=== PATIENT | male | born 1950 | race Caucasian/White ===

== ENCOUNTER 2025-07-05 11:23 | Outpatient (REF) | payer MEDICARE, OTHER, SELFPAY ==
[2025-07-05 14:43] LABS: Alanine Aminotransferase 24 U/L (0-40); Albumin Level 4.6 g/dL (3.5-5.0); Alkaline Phosphatase 104 U/L (39-117); Anion Gap 11 (12-20); Aspartate Amino Transferase 31 U/L (5-37); Blood Urea Nitrogen 17 mg/dL (9-16); Calcium 9.9 mg/dL (8.4-10.2); Carbon Dioxide 30 mmol/L (22-29); Chloride 108 mmol/L (96-108); Estimated Glomerular Filt Rate > 60; Potassium 4.0 mmol/L (3.3-5.1); Sodium 145 mmol/L (135-145); Total Protein 7.0 g/dL (6.5-8.0)
[2025-07-05 14:45] LABS: Thyroid Stimulating Hormone 1.01 uIU/mL (0.32-4.0)
[2025-07-05 15:02] LABS: Folate 11.9 ng/mL (> or = 4.0); Vitamin B12 571 pg/mL (200-900)
[2025-07-06 06:39] LABS: Lyme Abs Screen <0.90 index
== END 2025-07-05 11:24 | disposition home or self-care (01) ==
LOC: HO.LAB 11:23
PROVIDERS: PCP Internal Medicine; Visit Provider Psychiatry & Neurology Neurology
DX: G30.9 Alzheimer's disease, unspecified (principal); F02.80 Dementia in other diseases classified elsewhere, unspecified severity, without behavioral disturbance, psychotic disturbance, mood disturbance, and anxiety; Z01.84 Encounter for antibody response examination
CPT/HCPCS: 36415; 80048; 80076; 82607; 82746; 84443; 85652; 86617; 86618; 99202

== ENCOUNTER 2025-07-05 11:23 | Outpatient (AMB) | payer MEDICARE, SELFPAY ==
--- NOTE | 2025-07-05 11:51 | MHC.OFFVIS ---
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 His situation slowly worsened and apparently in September of 2024 he had an amyloid PET scan done in [place]. She was here to find out if anything could be done about him. He was having problem with his memory and focusing but otherwise no significant behavioral problems. He had a trip planned already to go to [email or web address] with his in a week or so. [facility] Medical History (Updated 07/05/25 @ 12:13 by Malena Morataya MD) Prediabetes Benign essential tremor SHAHBAZ (obstructive sleep apnea) CKD (chronic kidney disease) Alzheimer disease Surgical History (Updated 07/04/25 @ 09:30 by Rosa Leslie [facility]) History of carpal tunnel surgery H/O cataract removal with insertion of prosthetic lens History of hip surgery H/O arthroscopy of shoulder Family History (Updated 07/04/25 @ 09:32 by Rosa Leslie CMA) Father No problems noted. Mother Hypertension Kidney failure Review of Systems Const Details: - Neurological: Reports cognitive decline, memory retention issues, slower mental processing, forgetfulness. Denies physical slowness. - Psychiatric: Reports anxiety, PTSD. Denies severe mood swings. - Sleep: Reports poor sleep quality despite CPAP use for sleep apnea. 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 He was educated about this concept and its conventional and current treatment. We talked about biological drugs and their potential benefit in side-effects including possibility of stroke both ischemic and bleeding type leading to disability or even . I also advised him to bring his next time with him so that at least somebody from his family fully understand implication of this type of treatment. He wanted to go ahead and I am making arrangement for that but he would require a fresh MRI, blood tests, and arrangement for infusion. Infusion would be started after he comes back from [place]. He was advised not to travel alone. Orders: Orders Vitamin B12 and Folate Today 80 - Dementia in other diseases classified elsewhere, unspecified severity, without behavioral disturbance, psychotic disturbance, mood disturbance, and anxiety, G30.9 - Alzheimer's disease, unspecified Basic Metabolic Panel Today F0.80 - Dementia in other diseases classified elsewhere, unspecified severity, without behavioral disturbance, psychotic disturbance, mood disturbance, and anxiety, G30.9 - Alzheimer's disease, unspecified Erythrocyte Sedimentation Rate Today 80 - Dementia in other diseases classified elsewhere, unspecified severity, without behavioral disturbance, psychotic disturbance, mood disturbance, and anxiety, G30.9 - Alzheimer's disease, unspecified MR head/brain wo con Today F080 - Dementia in other diseases classified elsewhere, unspecified severity, without behavioral disturbance, psychotic disturbance, mood disturbance, and anxiety, G30.9 - Alzheimer's disease, unspecified Thyroid Stimulating Hormone Today F0.80 - Dementia in other diseases classified elsewhere, unspecified severity, without behavioral disturbance, psychotic disturbance, mood disturbance, and anxiety, G30.9 - Alzheimer's disease, unspecified Liver Panel Today F0.80 - Dementia in other diseases classified elsewhere, unspecified severity, without behavioral disturbance, psychotic disturbance, mood disturbance, and anxiety, G30.9 - Alzheimer's disease, unspecified Lyme IgG/IgM w/reflex to WB Today F080 - Dementia in other diseases classified elsewhere, unspecified severity, without behavioral disturbance, psychotic disturbance, mood disturbance, and anxiety, G30.9 - Alzheimer's disease, unspecified Referrals Infusion Center Notification F0.80 - Dementia in other diseases classified elsewhere, unspecified severity, without behavioral disturbance, psychotic disturbance, mood disturbance, and anxiety, G30.9 - Alzheimer's disease, unspecified Medications: New donanemab-azbt (Kisunla) administer as dose 4 and thereafter 350 mg (20 mL) IV Q4W 1 month Coding Level of Care Code New Pt Level 5 (84934) Diagnoses Alzheimer disease G30.9; F02.80
--- OUTSIDE RECORDS SUMMARY | 2025-07-05 13:00 | XMS_ITS | Clinical Summary ---
Author Organization [facility] Address [address] [place] [address] Phone Care Team Providers Care Telephone Solicitor Name Role Phone Carlton Martinez MD Primary Care Provider [phone] Social History Tobacco Use Types Packs/Day Years Used Date Smoking Tobacco: Never Assessed Education Answer Date Recorded Are you interested in more education? Not on miles e 01/29/2023 Are you concerned about learning? Not on file 01/29/2023 No 01/29/2023 No 01/29/2023 Digital Access Answer Date Recorded No 03/02/2023 No 03/02/2023 No 03/02/2023 Reliable internet access at home? Not on file 03/02/2023 Device with a working camera? Not on file Sex and Gender Information Value Date Recorded Sex Assigned at Male 05/01/2022 5:59 PM EDT Legal Sex Male 7:29 PM EST Gender Identity Male 05/01/2022 5:59 PM EDT Sexual Orientation Straight 05/01/2022 5: 59 PM EDT Plan of Treatment Health Maintenance Due Date Last Done Comments LIPID PANEL 1950 DEPRESSION SCREENING 1963 SMOKING Hx and SMOKELESS TOBACCO SCREENING 01/11/1964 HEPATITIS C SCREENING 1969 COLOGUARD 01/11/1996 COLONOSCOPY 01/11/1996 COLORECTAL CANCER SCREENING 01/11/1996 FIT TEST 01/11/1996 FOBT 01/11/1996 SIGMOIDOSCOPY 01/11/1996 VIRTUAL COLONOSCOPY 01/11/1996 PNEUMOCOCCAL VACCINES (50+ years) (1 of 1 - PCV) 2001 ZOSTER VACCINES (1 of 2) 2001 INFLUENZA VACCINE (#1) 2025 , 07/20/2017 COVID-19 VACCINE (2 - 2024-2 6 season) 2025 08/05/2021 RSV VACCINE (1 - 1-dose 75+ series) 2026 Adult Td,Tdap Booster 09/03/2031 09/03/2021 HEPATITIS A VACCINES Aged Out No long er eligible based on patient's age to complete this topic HIB VACCINES Aged Out No longer eligi ble based on patient's age to complete this topic MENINGOCOCCAL VACCINES (ACWY) Aged Out No longer eligible based on patient's age to complete this topic MENINGOCOCCAL VACCINES (B) Aged Out N o longer eligible based on patient's age to complete this topic Medical Devices Not on file Insurance MEDICARE PART A & B MEDICARE PART A & B MEDICARE PART A & B MEDICARE PART A & B MEDICARE PART A & B MEDICARE PART A & B MEDICARE PART A & B MEDICARE PART A & B MEDICARE PART A & B Care Teams Telephone Solicitor Relationship Specialty Start Date End Date Carlton Martinez MD [address] [place] [address] [email or web address] PCP - General Internal Medicine 05/01/22 Additional Source Comments The information contained in this document represents components of the legal health record. It is not the complete legal health record.[facility]
== END 2025-07-05 12:29 | disposition home or self-care (01) ==
LOC: HO.HSM 11:24
PROVIDERS: Visit Provider Psychiatry & Neurology Neurology
DX: G30.9 Alzheimer's disease, unspecified (principal); F02.80 Dementia in other diseases classified elsewhere, unspecified severity, without behavioral disturbance, psychotic disturbance, mood disturbance, and anxiety
CPT/HCPCS: 99204

== ENCOUNTER → 2025-08-10 09:53 | Outpatient (BNV) | payer MEDICARE, OTHER, SELFPAY | PROVIDERS: PCP Internal Medicine; Visit Provider Radiology Diagnostic Radiology | DX: G30.9 Alzheimer's disease, unspecified (principal); I67.82 Cerebral ischemia | CPT/HCPCS: 70551 ==

== ENCOUNTER 2025-08-10 10:00 | Outpatient (REF) | payer MEDICARE, OTHER, SELFPAY ==
--- OUTSIDE RECORDS SUMMARY | 2024-11-16 06:00 | XMS_ITS ---
Author Organization Binta Martinez MD Address [address] [place] [phone] Care Team Providers Care Room Server Name Role Phone Binta Martinez Primary Care Provider [phone] REASON FOR VISIT AWV Encounters Encounter Location Date Provider Diagnosis Binta Martinez MD [address] CHANI TE [address] [place] [phone] 11/16/2024 Binta Martinez Plan Of Treatment Next Appt Details Provider Name:Binta Martinez , 08/14/2025 02:00:00 PM, [address] [place] [address], [phone], Provider Name:Binta Martinez , 12/21/2025 10:45:00 AM, [address] [place] [address], [phone], Progress Notes * Yohan MCKOYOB:1950 ( 75 yo M)Acc No.[id number]:11/16/2024 Progress Note Patient: Johanne IRVINGARGELIA Fabio Provider: Mamie Martinez MD :1950 A ge:74 Y S ex:Male Date:11/16/2024 Address:[address] [place] [id number] Subjective: * Chief Complaints: * 1 . AWV. * Medical History: * Ocular Surgical History: Objective: * Vitals: Past Vitals:* 08/05/2024 Temp:97.6F, HR:70/min, BP:Si tting Right Arm: 122/70mm Hg, Wt:161.2lbs, BMI:26.02Index, Ht:66.00in, Oxygen sat %:98% * 11/10/2023 Temp:98.0F, HR:69/min, BP:Si tting Right Arm: 128/72mm Hg, Wt:168.20lbs, BMI:27.15Index, Ht:66.00in, Oxygen sat %:98% * 07/27/2023 Temp:97.9F, HR:65/min, BP:Si tting Right Arm:114/64mm Hg, Wt:173lbs, BMI:27.92Index, Ht:66in, Oxygen sat %:97% Assessment: Plan: * Treatment: * Images: Billing Information: * Visit Code: * Procedure Codes: * Electronic signature of Charlee Martinez MD on 08/10/2025 at 11:31 AM EST Sign off status: Pending * Provider: Mamie Martinez MD Date: 0 11/16/2024 Generated for Lawanda waller/Lyla/Doloresitting on: 1 10/10/2024 11:31 AM EST
--- NOTE | ~2025-08-10 | MR_ITS ---
EXAMINATION: MR BRAIN WITHOUT CONTRAST CLINICAL INFORMATION: Forgetfulness. Alzheimer's disease, unspecified. COMPARISON: None available. TECHNIQUE: MRI of the brain was obtained using routine sequences without contrast. Examination performed on a 1.5 Trena Siemens high-field unit. FINDINGS: There is no diffusion restriction. There is no intracranial hemorrhage, acute infarction, mass effect, or edema. Ventricles, sulci, and cisterns are somewhat diffusely prominent, in keeping with mildly age advanced cerebral and cerebellar volume loss. No asymmetric pattern of atrophy is evident. Mild prominence of the temporal horns of the lateral ventricles, with mild volume loss in both hippocampi. Hippocampi are normal in signal. There is a small 3 mm right hippocampal remnant cyst. No shift of midline. No abnormal hemosiderin deposition is identified. There are scattered punctate and minimally confluent foci of white matter T2 hyperintensity in the periventricular, subcortical, and hemispheric deep white matter. These foci are nonspecific but statistically relate to mild small vessel ischemic changes. No configuration specific to inflammatory demyelination. Midline structures appear normally formed. No significant callosal atrophy. There is a partial empty sella. Posterior fossa structures appear normal. Cerebellar tonsils are appropriately located. Major flow voids are preserved within the skull base. The globes and orbital contents demonstrate no abnormalities. There are probable bilateral lens replacements, versus protein loss. Paranasal sinuses are clear bilaterally. The mastoids and tympanic cavities are normally aerated. Extracranial soft tissues demonstrate no abnormalities. No suspicious bone marrow changes are evident. There are mild to moderate degenerative changes in both TM joints. Atlantoaxial joint demonstrates mild to moderate degenerative change. MR/MR head/brain wo con IMPRESSION: 1. No evidence of intracranial hemorrhage, acute infarction, mass effect, or edema. 2. Mildly age advanced cerebral and cerebellar volume loss. There is mild hippocampal volume loss bilaterally. 3. Mild white matter changes of small vessel ischemia. Electronically signed by: Colin Elder MD 08/10/2025 11:03 AM [facility] [place]
--- OUTSIDE RECORDS SUMMARY | 2025-08-10 11:31 | XMS_ITS | Data Portability ---
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 The MR shows labral tearing and cartilage wearing. An injection to the left hip helped briefly. His MR didn't show any hamstring issues although he was given an ischial injection as well. We discussed the issues related to his treatment. I've recommended that we see each other for further examination since his presentation is a bit usual. This visit was conducted as a real-time telehealth interactive video visit. He was identified and consented to this telehealth visit. I spent a total of 25 minutes during this encounter. Greater than 50% of the time was devoted to counseling and coordinating care. This included reviewing records and pertinent studies, discussing diagnostic evaluation and workup, planning therapeutic interventions, and formulating the future disposition of care. sbm Not available 01/04/2024 18:15:47 Plan of Treatment Reminders Order Date Submit Date Provider Last Modified By Organization Details Last Modified Time Details Appointments None record ed. Lab None record ed. Referral None record ed. Procedures None record ed. Surgeries None record ed. Imaging None record ed. Medication Orders None record ed. Patient TargetsNo targets recorded. Patient InstructionsNo instructions recorded. Reason for Referral None Reported. Problems Name Problem SNOMED Code Status Onset Date Resolution Date Notes Provider Name and Address Organization Details Recorded Time Congenital deformity of hip joint 0721708 Active Not Available [employer] 4 03:31:08 Problem Notes None recorded. Procedures Surgical History Date Name Laterality Status Provider Name and Address Organization Details Recorded Time Hip Surgery completed Jose Roberto Stafford MD [address] [place] [address],[address], [place], [address], [place] - [facility] 01/04/2024 18:11:29 Imaging Results None recorded. Procedure Notes None recorded. Medical Equipment None Reported. Allergies Allergen ID Allergen Name Allergen Category Reaction Reaction Severity Criticality Documentation Date Start Date Code Code System Note Provider Name and Address Organization Details Recorded Time 55843 amoxicill in medicatio n Not available Not available Not available 01/04/2024 723 RxNorm Ana negron, [place] - [facility] 4 14:22:18 11989 clindamyc in Not available Not available Not available Not available 01/04/2024 2582 RxNorm Ana negron, [place] - [facility] 4 14:22:24 80457 doxycycli ne Not available Not available Not available Not available 01/04/2024 3640 RxNorm Ana negron, [place] - [facility] 4 14:22:33 06806 codeine medicatio n Not available Not available Not available 01/04/2024 2670 RxNorm Ana negron, [place] - [facility] 4 14:22:42 Medications Name Sig Start Date Stop Date Status Note LastModified by Organization Details LastModified Time celecoxib 200 mg capsule active Not Available Not Available N ot Available trazodone 50 mg tablet active Not Available Not Available Not Available azithromycin 250 mg tablet active Not Available Not Availabl e Not Available valacyclovir 1 gram tablet active Not Available Not Available Not Available famotidine 40 mg tablet active Not Available Not Available No t Available prednisone 20 mg tablet active Not Available Not Available No t Available metronidazole 500 mg tablet active Not Available Not Availabl e Not Available amlodipine 5 mg tablet active Not Available Not Available Not Available tramadol 50 mg tablet active Not Available Not Available Not Available tamsulosin 0.4 mg capsule active Not Available Not Available N ot Available trazodone 100 mg tablet active Not Available Not Available No t Available pantoprazole 40 mg tablet,delayed release active Not Available Not Available Not Available hyoscyamine sulfate 0.125 mg tablet active Not Available Not Available No t Available codeine 10 mg-guaifenesin 100 mg/5 mL oral liquid active Not Available Not Available Not Available lorazepam 1 mg tablet active Not Available Not Available Not Available ramipril 5 mg capsule active Not Available Not Available Not Available azelaic acid 15 % topical gel active Not Available Not Availabl e Not Available rosuvastatin 40 mg tablet active Not Available Not Available No t Available Viibryd 20 mg tablet active Not Available Not Available Not Available Lubricating Plus 0.5 % eye drops in a dropperette active Not Available Not Available Not Available Anusol-HC 2.5 % topical cream with perineal applicator active Not Available Not Available N ot Available Vitals Date Recorded Body height Body mass index (BMI) Body weight Provider Name and Address Organization Details Last Updated DateTime 01/04/2024 167.64 cm 26.5 kg/m2 67930.15 g Ana Molina [place] - [facility] 01/04/2024 14:21:45 Social History Question Answer Notes LastModified by Organizat ion Details LastModified Time Tobacco Smoking Status Former Smoker Ana Jesse null, [place] - [facility] 01/04/2024 14:23:10 Do You Have An Advance Directive? No [email or web address] Information not available 01/04/2024 Do You Have A Medical Power Of Operations General Agent? No [email or web address] Information not available 01/04/2024 What Was The Date Of Your Most Recent Tobacco Screening? 01/04/2024 [email or web address] Information not available 01/04/2024 How Much Tobacco Do You Smoke? No [email or web address] Information not available 01/04/2024 Sex: Unknown Functional Status Question Answer Note LastModified by Organization D etails LastModified Time Do you or have you ever used any other forms of tobacco or nicotine? No [email or web address] Information not available 01/04/2024 Are you able to care for yourself independently? Yes [email or web address] Information not available 01/04/2024 Mental Status None recorded. Family History Nothing Reported. Medical History Condition Response Anxiety/Depression Y Arthritis Y High Cholesterol Y Anemia Y Hypertension Y Past Encounters Encounter ID Performer Location Encounter Start Date Encounter Closed Date Diagnosis/Indication Diagnosis SNOMED-CT Code Diagnosis ICD10 Code Diagnosis IMO Codes Diagnosis Note [id number] Jose Roberto Stafford MD OFFICE [address], [address] [place] [phone] 01/21/2010 12:49:43 01/21/2010 14:32:27 Congenital deformity of hip joint [id number] Jose Roberto Stafford MD [facility] [address] [place] [address] 01/04/2024 14:20:38 01/04/2024 19:29:11 Health Concerns Section Related Observation LastModified by Organization Detai ls LastModified Time None Recorded Concern Status LastModified by Organization Details LastModified Time None Recorded Advance Directives Directive N: Payers Insurance Date Sequence Insurance Name Policy Number Policy Owens Covered Member ID Owens Member ID Guarantor Name 12/15/2023 1 [place] [employer] Fabio Raheb [id number] Fabio Raheb 01/04/2024 2 FOR LIFE () Fabio Raheb [id number] Fabio Raheb 01/15/2024 1 [place] [employer] Fabio H Raheb [id number] Fabio Raheb Notes Date Note Type Note Provider Name and Address Organization Details Recorded Time 01/04/2024 text/html Hip(s) [facility]orted by PatientHPIFor location, [email or web address] For severity, patient reportssevere(can be quite severe at times. more often in the morning.). For aggravating factors, patient reportsbending/squat ting,getting out of bed,going from sit to stand, andmorning. For associated symptoms, patient reportsno weakness,no numbness,no tingling,no swelling,no redness,no warmth,no ecchymosis,no catching/locking,no popping/clicking,no buckling,no grinding,no instability,no radiation down leg,no drainage,no fever,no chills,no weight loss, andno change in bowel/bladder habits. For prior imaging, patient reportsx [email or web address]. For previous injections, patient reportshelped temporarily. For alleviating factors, (walking is ok, afternoons are better, left hip injection helped for a few weeks.).ROS as noted in the HPI Jose Roberto Stafford MD [address] [place] [address],[facility] [address], [place], [address], [place] - [facility] 01/04/2024 18:15:51
--- OUTSIDE RECORDS SUMMARY | 2025-08-10 11:31 | XMS_ITS | Clinical Summary ---
Author Organization [facility] Address [facility] [address] [place] [address] Phone Care Team Providers Care Material Engineer Name Role Phone Carlton Martinez MD Primary Care Provider [phone] Encounters Date Type Department Care Team Description 07/06/2025 Transcribe Orders [facility] - Virtual Department [address] [place] [address] Self-Referred, Patient from Last 3 Months Social History Tobacco Use Types Packs/Day Years [...] of 2) 2001 INFLUENZA VACCINE (#1) 2025 1, 07/20/2017 COVID-19 VACCINE (2 - 2024-2 6 [...] file Insurance MEDICARE PART A & B [employer] MEDICARE SUPPLEMENT MEDICARE PART A & [place] [address] [place] MEDICARE SUPPLEMENT MEDICARE PART A & B MEDICARE PART A & B MEDICARE PART A & B [employer] MEDICARE SUPPLEMENT MEDICARE PART A & B [employer] MEDICARE SUPPLEMENT MEDICARE PART A & B [employer] MEDICARE SUPPLEMENT MEDICARE PART A & B MEDICARE PART A & B FOR LIFE MEDICARE SUPPLEMENT Care Teams Material Engineer Relationship Specialty Start Date End Date Carlton Martinez MD [address] [place] [address] [email or web address] PCP - General Internal Medicine 07/06/25 Additional Source Comments The information contained in this document represents components of the legal health record. It is not the complete legal health record.[facility]
--- OUTSIDE RECORDS SUMMARY | 2025-08-10 11:31 | XMS_ITS | Patient Health Record ---
Author Organization Binta Martinez MD Address [address] [facility] [address] [place] [phone] Care Team Providers Care Reel Assembler Name Role Phone Binta Martinez Primary Care Provider Allergies Allergen (clinical drug ingredient) Drug/Non Drug Allergy documented on EMR Reaction Allergy Type Onset Date Status amoxicillin Amoxicillin rash Drug Allergy Act byron doxycycline Doxycycline dizzy Drug Allergy Act byron clindamycin Clindamycin Diarrhea/c diff Drug Allergy Active Results Component Value Reference Range Notes [facility] Informed Consent Fo Reviewed date:10/03/2024 12:47:50 PM Interpretation: Performing Lab:[facility] Rita Dowell, [address], [place], Phone - [phone], Director - [facility] Notes/Report: [facility]oter[facility] Informed Consent Form [facility] Informed Consent Form 02 Please Fax back to [phone]. Many states require laboratories to have documentation that the appropriate health care provider has obtained informed consent from patients before the laboratory conducts genetic testing. Informed consent includes the patient understanding the purpose of the test, how the test is performed, the reliability of the test, alternatives to testing, implications of test results, and options on how to instruct the laboratory to store, use or dispose of the sample when testing is complete. [facility] did not receive any documentation of informed consent for above mentioned patient and ordered tests. Please check the statement applicable to this patient and sign below so that [facility] may release the results for this patient. . [] I authorize and confirm patient consent for the above mentioned genetic test(s). . [] I have provided appropriate informed consent for the above mentioned test(s) and documentation of this consent is maintained in the patient record. . . Health care provider signature D ate . Printed name . [facility] at [phone] . [facility] APOE Alzheimer's Risk-[id number] Reviewed date:10/03/2024 12:47:50 PM Interpretation: Performing Lab:[facility], [address], Phone - [phone], Director - [facility] Notes/Report: Methodology: Patient DNA is assayed for the APOE genotype by PCR amplification of a specific region in exon 4 of the APOE gene followed by digestion with restriction enzyme Mangle Tender I and separation of fragments by polyacrylamide gel electrophoresis. This approach allows the APOE E2, E3, and E4 alleles to be distinguished. Analytical sensitivity and specificity are >99.5%. Individuals are interpreted as having one of the following genotypes: E2/E2, E3/E3, E4/E4, E2/E3, E2/E4, E3/E4. APO E Genotyping Result: E3/E3 Interpretation: Negative for the APOE4 variant that is associated with increased risk for late onset Alzheimer's disease (AD). E3/E3 is the most common APOE genotype and is not associated with increased risk for AD. RECOMMENDATIONS Genetic counseling is recommended. Due to the lack of measures to prevent the development of AD, the ACMG/NSGC guidelines do not recommend presymptomatic testing, but if it is performed, guidelines are provided (Zenobia GUZMAN et al. 2011). The APOE Genotyping: Alzheimer's Risk test is not recommended for children. NOTE: This is not a diagnostic test. Results should be interpreted along with clinical findings and other data. This test evaluates only for the APOE genotype and cannot detect genetic abnormalities elsewhere in the genome. It should be realized that there are possible sources of error including sample misidentification, rare technical errors, trace contamination of PCR reactions, and rare genetic variants that may interfere with analysis. For inquiries or genetic consultation, please call Svetlana at . Comment: INFORMATION ABOUT THE APOE GENOTYPE AND ALZHEIMER'S DISEASE Alzheimer's disease (AD) is the most common form of dementia in the elderly and currently affects more than 5 million Americans. It is a progressive neurodegenerative disorder with brain findings of plaques and neurofibrillary tangles containing beta-amyloid and tau protein respectively. The predominant form of AD is late onset (age > 60-65), which can be familial (15-20%) or sporadic. The APOE4 variant increases the risk for late onset AD and may contribute to the pathology of the disease. This risk is increased by approximately 2 to 3-fold for individuals with one copy of the APOE4 variant and by approximately 10 pi21-fnnw for individuals with two copies of this variant (E4/E4 genotype). The APOE2 variant has some protective effect against development of late onset AD. The lifetime risk for late onset AD is approximately 10-12% in the general population, though it is higher in women than men and doubles when there is a first degree relative with this disorder. The lifetime risk is approximately 9% for individuals negative for APOE4, and for individuals with E4/E4 may be as high as 25% for males and 45% for females. Among patients with late onset AD, the presence of APOE4 may lead to earlier development of symptoms. However, APOE4 is neither necessary nor sufficient for the development of AD. Approximately 30-50% of patients with late onset AD do not have an APOE4 allele. APOE4 is common, with 25% of the general population having one copy and 1% having two copies of this variant. Among patients with late onset AD, 50-70% are positive for APOE4. The development of late onset AD is influenced by many factors other than APOE4 including age, gender, family history, level of education and history of head trauma. Midlife cardiovascular risk factors in individuals with APOE4 also increase risk for cognitive decline. A number of genetic influences in addition to APOE4 have also been reported and are under investigation. This test was developed and its performance characteristics determined by [facility]. It has not been cleared or approved by the Food and Drug Administration. The FDA has determined that such clearance or approval is not necessary. REFERENCES Mathew Hatch et al. Sex modifies the APOE-related risk of developing Alzheimer disease. Annal Neurol 2014;75(4):563-573 Bird TD. Alzheimer Disease Overview. [employer] (internet). Sujit WILKERSON et al., editors. [place]: Merged with [facility], [place], [place]. Last revised 2014. Zenobia JS et al. Genetic counseling and testing for Alzheimer disease: Joint practice guidelines of the [place] [employer]etics and the National Society of Genetic Counselors. Matilde in Med 2011;13(6)077-317. Leander HM. Apolipoprotein E: Implications for AD neurobiology, epidemiology and risk assessment. Neurobiology of Aging 2011;32:778-790 Hemoglobin [id number] Reviewed date:12/19/2024 12:34:13 PM Interpretation: Performing Lab:[facility] [place], [address] [place] [address], Phone - [phone], Director - Mirella Notes/Report: Hemoglobin A1c 5.8 4.8-5.6 % . Prediabetes: 5.7 - 6.4 Diabetes: >6.4 Glycemic control for adults with diabetes: <7.0 Urinalysis, Complete-[id number] Reviewed date:12/19/2024 12:34:14 PM Interpretation: Performing Lab:[facility] [place], [address] [place] [address], [place], Phone - [phone], Director - Mirella Notes/Report: Specific [place] 1.011 1.005-1.030 pH 6.5 5.0-7.5 Urine-Color Yellow Yellow Appearance Clear Clear WBC Esterase Negative Negative Protein Negative Negative/Trace Glucose Negative Negative Ketones Negative Negative Occult Blood Negative Negative Bilirubin Negative Negative Urobilinogen,Semi-Qn 0.2 0.2-1.0 mg/dL Nitrite, Urine Negative Negative Microscopic Examination Micr oscopic follows if indicated. Microscopic Examination See below: Micr oscopic was indicated and was performed. WBC None seen 0 - 5 /hpf RBC None seen 0 - 2 /hpf Epithelial Cells (non renal) None seen 0 - 10 /hpf Casts None seen None seen /lpf Bacteria None seen None seen/Few CBC With Differential/Platel et-[id number] Reviewed date:12/19/2024 12:34:14 PM Interpretation: Performing Lab:[facility] [place], [address] [facility], [place], Phone - [phone], Director - Jamesy Notes/Report: WBC 7.2 3.4-10.8 x10E3/uL RBC 4.38 4.14-5.80 x10E6/uL Hemoglobin 13.7 13.0-17.7 g/dL Hematocrit 41.5 37.5-51.0 % MCV 95 79-97 fL MCH 31.3 26.6-33.0 pg MCHC 33.0 31.5-35.7 g/dL RDW 12.4 11.6-15.4 % Platelets 242 150-450 x10E3/uL Neutrophils 61 Not Estab. % Lymphs 26 Not Estab. % Monocytes 13 Not Estab. % Eos 0 Not Estab. % Basos 0 Not Estab. % Neutrophils (Absolute) 4.3 1.4-7.0 x10E3/uL Lymphs (Absolute) 1.9 0.7-3.1 x10E3/uL Monocytes(Absolute) 0.9 0.1-0.9 x10E3/uL Eos (Absolute) 0.0 0.0-0.4 x10E3/uL Baso (Absolute) 0.0 0.0-0.2 x10E3/uL Immature Granulocytes 0 Not Estab. % Immature Grans (Abs) 0.0 0.0-0.1 x10E3/uL Prostate-Specific Ag-[id number] Reviewed date:12/19/2024 12:34:14 PM Interpretation: Performing Lab:[facility] [place], [address] [place] [address], Phone - [phone], Director - [facility] Notes/Report: Prostate Specific Ag 1.4 0.0-4.0 ng/mL Mendy ECLIA methodology. . According to the [place] [employer], Serum PSA should decrease and remain at undetectable levels after radical prostatectomy. The AUA defines biochemical recurrence as an initial PSA value 0.2 ng/mL or greater followed by a subsequent confirmatory PSA value 0.2 ng/mL or greater. Values obtained with different assay methods or kits cannot be used interchangeably. Results cannot be interpreted as absolute evidence of the presence or absence of malignant disease. Vitamin D, 98-[id number] Reviewed date:12/19/2024 12:34:14 PM Interpretation: Performing Lab:[facility] [place], [address] [facility], Phone - [phone], Director - MDJodry Notes/Report: Vitamin D, 25-Hydroxy 49.8 30.0-100.0 ng/mL Vitamin D deficiency has been defined by the [employer] of Medicine and an Endocrine Society practice guideline as a level of serum 25-OH vitamin D less than 20 ng/mL (1,2). The Endocrine Society went on to further define vitamin D insufficiency as a level between 21 and 29 ng/mL (2). 1. IOM ([employer] of Medicine). 2010. Dietary reference intakes for calcium and D. [place]: The National Academies Press. 2. Kamari MF, De GUALLPA, Ino MILLER, et al. Evaluation, treatment, and prevention of vitamin D deficiency: an Endocrine Society clinical practice guideline. JCEM. 2010; 96(7):1911-30. Albumin/Creatinine Ratio,Uri ne-[id number] Reviewed date:12/19/2024 12:34:14 PM Interpretation: Performing Lab:[facility], [address] [facility], Phone - [phone], Director - MDDyan Notes/Report: Creatinine, Urine 49.0 Not Estab. mg/dL Albumin, Urine 9.5 Not Estab. ug/mL Alb/Creat Ratio 19 0-29 mg/g creat Normal: 0 - 29 Moderately increased: 30 - 300 Severely increased: >300 Comp. Metabolic Panel (14)-3 [id number] Reviewed date:12/19/2024 12:34:15 PM Interpretation: Performing Lab:[facility] [place], [address] [facility], [place], Phone - [phone], Director - MDDyan Notes/Report: Glucose 80 70-99 mg/dL BUN 19 8-27 mg/dL Creatinine 1.07 0.76-1.27 mg/dL eGFR 73 >59 mL/min/1.73 BUN/Creatinine Ratio 18 10-24 Sodium 143 134-144 mmol/L Potassium 4.0 3.5-5.2 mmol/L Chloride 104 96-106 mmol/L Carbon Dioxide, Total 25 20-29 mmol/L Calcium 9.8 8.6-10.2 mg/dL Protein, Total 6.8 6.0-8.5 g/dL Albumin 4.5 3.8-4.8 g/dL Globulin, Total 2.3 1.5-4.5 g/dL Bilirubin, Total 0.7 0.0-1.2 mg/dL Alkaline Phosphatase 93 44-121 IU/L AST (SGOT) 20 0-40 IU/L ALT (SGPT) 19 0-44 IU/L LP+Non-HDL Cholesterol-[id number] 5 Reviewed date:12/19/2024 12:34:15 PM Interpretation: Performing Lab:[facility] [place], [address] [facility], [place], Phone - [phone], Director - Mirella Notes/Report: Cholesterol, Total 155 100-199 mg/dL Triglycerides 132 0-149 mg/dL HDL Cholesterol 61 >39 mg/dL VLDL Cholesterol Bryant 23 5-40 mg/dL LDL Chol Calc (NIH) 71 0-99 mg/dL Non-HDL Cholesterol 94 0-129 mg/dL HCV Antibody-[id number] Reviewed date:12/19/2024 12:34:15 PM Interpretation: Performing Lab:[facility] [place], [address] [facility], [place], Phone - [phone], Director - Mirella Notes/Report: Hep C Virus Ab Non Reactive Non Reactive HCV antibody alone does not differentiate between previously resolved infection and active infection. Equivocal and Reactive HCV antibody results should be followed up with an HCV RNA test to support the diagnosis of active HCV infection. Reason For Referral Reason faxed Diagnosis 1 Alzheimer's disease with late onset (G30.1) Referral Organization Binta GUERRERO Referring Provider First Name Binta Referring Provider Last Name Juan Referring Provider Speciality Internal M edicine Referred Provider Malena Morataya Referred Provider Specialty Neurology General Notes Emely WINTER 04/04 08:20:38 AM >[facility]/03/2025 10:11:34 AM >Patient called to follow up on referral, gave him the phone number to call facility and book appt., Emely WINTER 06/07/2025 03:31:00 PM >[facility] 06/13/2025 08:24:44 AM >Received fax response, patient booked 07/05/2025 at [facility] [facility] Referral Priority Routine Medications Medication SIG (Take, Route, Frequency, Duration) Notes Start Date End Date Status Vitamin D 50 MCG (1999) 1 tablet Orally Once a day; Duration: 30 day(s) Active Crestor 40 MG 1 tablet Orally Once a day; Duration: 90 days 02/12/2023 Active Vilazodone HCl 20 MG 1 tablet for 4 days and 0.5 for 3 days by alternating the day Orally Once a day; Duration: 30 day(s) Active Famotidine 40 MG twice a day Orally once a day PRN Active Vitamin E Active Melatonin 5 MG 1 tablet in the even ing Orally Once a day; Duration: 30 day(s) Active Multi Vitamin Active Gemtesa 75 MG 1 tablet Orally Once a day; Duration: 30 day(s) 04/30/2022 Active Montelukast Sodium 10 MG 1 tablet Orally Once a day; Duration: 30 day(s) Active Inderal LA 60 MG 1 capsule Orally Onc e a day; Duration: 90 days PRN 04/30/2022 Active Restasis Active [place] 3 Not-Taking traZODone HCl 100 MG 1 tablet at bedtime as needed Orally Once a day Active Xiidra 5 % 1 drop into affected eye Ophthalmic Twice a day Not-Takin g Flomax 0.4 MG 1 capsule Orally Onc e a day 1/2 hour after same meal; Duration: 90 Active Ramipril 5 MG 1 capsule Orally Onc e a day 10/01/2021 Active Cetirizine HCl 10 MG 1 tablet Orally Onc e a day; Duration: 90 days Active amLODIPine Besylate 5 MG 1 tablet Orally Once a day; Duration: 30 day(s) 03/26/2023 Active Flonase 50 MCG/ACT 2 spray in each nost ril Nasally Once a day; Duration: 30 day(s) 06/23/2017 Active Viagra 100 MG 1 tablet as needed Orally Once a day; Duration: 90 days 02/26/2017 Active Hyoscyamine Sulfate 0.125 MG 1 tablet as needed Orally Three times a day Active Immunizations Vaccine Route Administration Date Status Comme nts Typhoid, ViCPs Unknown 05/02/2019 Administered Typhoid, unspecified formulation Unknown 05/05/2017 Administered Td (adult), absorbed Unknown 08/03/2019 Administered Td (adult) preservative free IM Intramuscular 09/03/2021 Administered Pneumococcal polysaccharide PCV 13 IM Intramuscular 06/25/2016 Administered Influenza (split), 3 yrs and above Unknown 07/20/2017 Administered Influenza Unknown 07/05/2020 Administered UUOLT-60-Xxplmr Vaccine Unknown 08/05/2021 Administered YWAUQ-36-Wmpcsfw Vaccine Unknown 11/13/2020 Administered *Tdap Unknown 07/25/2007 Administered in old recor ds *Shingrix Unknown 12/07/2019 Administered *Shingrix Unknown 02/06/2020 Administered *PREVNAR 20 IM Intramuscular 12/15/2024 Administered *Pneumococcal polysaccharide PPV23 IM Intramuscular 04/21/2018 Administered *Influenza-Medicare-A S IM Intramuscular 08/15/2021 Administered *Vbrjnglru-Wnsxplm-Zn gh Dose-65+ IM Intramuscular 08/05/2024 Administered *Influenza, High Dose Seasonal, Quadrivatent IM Intramuscular 07/27/2023 Administered Social History Tobacco Use: Social History Observation Description Date Details (start date - stop date) Former Smoker 11/05/1968 - 11/05/2013 AUDIT-C (Standard) Question Answer Notes Did you have a drink contain ing alcohol in the past year? Yes How often did you have six o r more drinks on one occasion in the past year? Never (0 point) How many drinks did you have on a typical day when you were drinking in the past year? 1 or 2 drinks (0 point) How often did you have a dri nk containing alcohol in the past year? 2 to 3 times a week (3 points) Points 3 Interpretation Negative Tobacco Control (Standard) Question Answer Notes Tobacco use: Former smoker When did you start smoking? 11/05/1968 When did you stop smoking? 11/05/2013 How long has it been since you last smoked? 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) Active confirmed Problem Vitamin D deficiency (82465708) Vitamin D deficiency, unspecified (E55.9) Active confirmed Problem Mixed hyperlipidemia (472432788) Mixed hyperlipidemia (E78.2) Active confirmed Problem Essential tremor (714293544) Essential tremor (G25.0) Active confirmed Problem Alzheimer's disease with early onset (705054307) Alzheimer's disease with early onset (G30.0) Active confirmed Problem Alzheimer's disease with late onset (800327059) Alzheimer's disease with late onset (G30.1) Active confirmed Problem Insomnia (526018452) Insomnia, unspecified (G47.00) Active confirmed Problem Carpal tunnel syndrome (97098684) Carpal tunnel syndrome, right upper limb (G56.01) Active confirmed Problem 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) Active confirmed Problem Sensorineural hearing loss of right ear with normal hearing on left side (disorder) (7856499683) Sensorineural hearing loss, unilateral, right ear, with unrestricted hearing on the contralateral side (H90.41) Active confirmed Problem Chronic kidney disease due to hypertension (127881319740944) Hypertensive chronic kidney disease with stage 1 through stage 4 chronic kidney disease, or unspecified chronic kidney disease (I12.9) Active confirmed Problem Supraventricular tachycardia (5789772) Supraventricular tachycardia (I47.1) Active confirmed Problem Atherosclerosis of aorta (49695056) Atherosclerosis of aorta (I70.0) Active confirmed Problem Hemorrhoids (03377299) Unspecified hemorrhoids (K64.9) Active confirmed Problem Localized, primary osteoarthritis of the pelvic region and thigh (662294525) Unilateral primary osteoarthritis, left hip (M16.12) Active confirmed Problem Chronic kidney disease stage 2 (749693489) Chronic kidney disease, stage 2 (mild) (N18.2) Active confirmed Problem Overactive bladder (797843508) Overactive bladder (N32.81) Active confirmed Problem Elevated blood pressure reading without diagnosis of hypertension (816683832) Elevated blood-pressure reading, without diagnosis of hypertension (R03.0) Active confirmed Problem Finding of hearing aid (045434193) Presence of external hearing-aid (Z97.4) Active confirmed Problem Obstructive sleep apnea syndrome (disorder) (69348705) Obstructive sleep apnea (adult) (pediatric) (G47.33) Active confirmed Problem Prediabetes (340317926) Prediabetes (R73.03) Active confirmed Problem Multi-infarct dementia, uncomplicated (35812441) Vascular dementia, unspecified severity, without behavioral disturbance, psychotic disturbance, mood disturbance, and anxiety (F01.50) Active confirmed Problem Moderate dementia (disorder) (698142440579625) Dementia in other diseases classified elsewhere, moderate, without behavioral disturbance, psychotic disturbance, mood disturbance, and anxiety (F02.B0) Active confirmed Problem Supraventricular tachycardia (disorder) (5883229) Supraventricular tachycardia, unspecified (I47.10) Active confirmed Problem 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, 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) Inactive confirmed Problem Mild cognitive disorder (139047818) Mild cognitive impairment, so stated (G31.84) Inactive confirmed Problem Age-related nuclear cataract of right eye (992046207364800) Age-related nuclear cataract, right eye (H25.11) Problem resolved confirmed Problem Typical atrial flutter (129781225) Typical atrial flutter (I48.3) Problem resolved confirmed Problem Enthesopathy of hip region (13959151) Other bursitis of hip, right hip (M70.71) Problem resolved confirmed Problem Medial epicondylitis of right elbow (873333094854865) Medial epicondylitis, right elbow (M77.01) Problem resolved confirmed Problem Lateral epicondylitis (173834007) Lateral epicondylitis, left elbow (M77.12) Problem resolved confirmed Problem COVID19 MARCE-Viru s Identified (U07.1) Problem resolved confirmed Vital Signs Heart Rate 68 /min 04/18/2025 Temperature 96.8 degrees Fahrenheit 04/18/2025 Blood pressure diastolic 60 mm Hg 04/18/2025 Oximetry 98 % 04/18/2025 Height 66.00 in 04/18/2025 Blood pressure systolic 114 mm Hg 04/18/2025 Weight 165 lbs 04/18/2025 BMI 26.63 kg/m2 04/18/2025 Encounters Encounter Location Date Provider Diagnosis Binta Martinez MD [address] [id number] 12/15/2024 Binta Martinez Encounter for genera l adult medical examination without abnormal findings Z00.00 ; Alzheimer's disease with early onset G30.0 ; Hypertensive chronic kidney disease with stage 1 through stage 4 chronic kidney disease, or unspecified chronic kidney disease I12.9 ; Chronic kidney disease, stage 2 (mild) N18.2 ; Atherosclerosis of aorta I70.0 ; Obstructive sleep apnea (adult) (pediatric) G47.33 ; Essential tremor G25.0 ; Supraventricular tachycardia, unspecified I47.10 ; Prediabetes R73.03 ; Mixed hyperlipidemia E78.2 ; Vitamin D deficiency, unspecified E55.9 ; Encounter for screening for malignant neoplasm of colon Z12.11 ; Encounter for screening for malignant neoplasm of prostate Z12.5 ; Encounter for screening for cardiovascular disorders Z13.6 ; Encounter for immunization Z23 ; Encounter for antibody response examination Z01.84 and Encounter for screening for other viral diseases Z11.59 Binta Martinez MD [address] [id number] 04/18/2025 Binta Martinez Hypertensive chronic kidney disease with stage 1 through stage 4 chronic kidney disease, or unspecified chronic kidney disease I12.9 ; Chronic kidney disease, stage 2 (mild) N18.2 ; Atherosclerosis of aorta I70.0 ; Obstructive sleep apnea (adult) (pediatric) G47.33 ; Supraventricular tachycardia, unspecified I47.10 ; Alzheimer's disease with late onset G30.1 ; Dementia in other diseases classified elsewhere, moderate, without behavioral disturbance, psychotic disturbance, mood disturbance, and anxiety F02.B0 ; Essential tremor G25.0 ; Prediabetes R73.03 ; Mixed hyperlipidemia E78.2 and Vitamin D deficiency, unspecified E55.9 Binta Martinez MD [address] [id number] 09/06/2024 Binta Martinez MD [address] [id number] 09/13/2024 Binta Martinez Alzheimer's disease with early onset G30.0 Binta Martinez MD [address] [id number] 09/19/2024 Binta Martinez MD [address] [id number] 09/27/2024 Binta Martinez MD [address] [id number] 10/03/2024 Binta Martinez Assessments Encounter Date Diagnosis (ICD Code) Assessment Notes Treatment Notes Treatment Clinical Notes Section Notes 09/13/2024 Alzheimer's disease with early onset (ICD-10 - G30.0) 12/15/2024 Alzheimer's disease with early onset (ICD-10 - G30.0) He has Alzheimer's disease. He has some mild cognitive impairment and should consider medical therapy to reduce rate of progression. However he is concerned about the risk of hemorrhagic complications and therefore does not wish to proceed with therapy at this point in time. Therefore continue supportive care 12/15/2024 Encounter for general adult medical examination without abnormal findings (ICD-10 - Z00.00) General healthcare up-to-date. Check routine labs. He already has a healthcare proxy and his is his surrogate decision-maker. 04/18/2025 Hypertensive chronic kidney disease with stage 1 through stage 4 chronic kidney disease, or unspecified chronic kidney disease (ICD-10 - I12.9) Z13.820 04/18/2025 Chronic kidney disease, stage 2 (mild) (ICD-10 - N18.2) Stable estimated GFR in the 70s. Continue control of comorbidity of hypertension 04/18/2025 Atherosclerosis of aorta (ICD-10 - I70.0) Noted on prior CAT scan. Continue control comorbidity of hypertension hyperlipidemia 12/15/2024 Hypertensive chronic kidney disease with stage 1 through stage 4 chronic kidney disease, or unspecified chronic kidney disease (ICD-10 - I12.9) Stable with current medical therapy. Continue same 04/18/2025 Obstructive sleep apnea (adult) (pediatric) (ICD-10 - G47.33) Continues to use CPAP with benefit 12/15/2024 Chronic kidney disease, stage 2 (mild) (ICD-10 - N18.2) Stable with GFR in the 70s. Continue control of comorbidity of hypertension 04/18/2025 Supraventricular tachycardia, unspecified (ICD-10 - I47.10) Symptomatically stable at present 12/15/2024 Atherosclerosis of aorta (ICD-10 - I70.0) Noted on prior CAT scan. Continue control comorbidity of hypertension hyperlipidemia 12/15/2024 Obstructive sleep apnea (adult) (pediatric) (ICD-10 - G47.33) Continues to use CPAP with benefit 04/18/2025 Alzheimer's disease with late onset (ICD-10 - G30.1) He has known Alzheimer's disease and recommend evaluation for disease modifying therapy. In the past he has been hesitant but there will still be benefit to disease modifying therapy. 04/18/2025 Dementia in other diseases classified elsewhere, moderate, without behavioral disturbance, psychotic disturbance, mood disturbance, and anxiety (ICD-10 - F02.B0) He has some minimal loss of cognitive function but disease-modifying therapy may help preserve or reduce the rate of decline. Therefore recommend that he get evaluated for treatment 12/15/2024 Essential tremor (ICD-10 - G25.0) Improved with beta-andrzej therapy which he uses on an as-needed basis 12/15/2024 Supraventricular tachycardia, unspecified (ICD-10 - I47.10) Symptomatically stable at present 04/18/2025 Essential tremor (ICD-10 - G25.0) Improved with beta-nadrzej therapy which he uses on an as-needed basis 04/18/2025 Prediabetes (ICD-10 - R73.03) Stable on prior labs as reviewed. 12/15/2024 Prediabetes (ICD-10 - R73.03) Stable on prior labs as reviewed. Recheck status 12/15/2024 Mixed hyperlipidemia (ICD-10 - E78.2) Stable on prior labs as reviewed with LDL less than 100. Recheck status to verify adequate control 04/18/2025 Mixed hyperlipidemia (ICD-10 - E78.2) Stable on prior labs as reviewed with LDL less than 100. Continue current medical therapy 04/18/2025 Vitamin D deficiency, unspecified (ICD-10 - E55.9) Stable on prior labs as reviewed. Would continue vitamin D supplementation to maintain level of 30+ 12/15/2024 Vitamin D deficiency, unspecified (ICD-10 - E55.9) Check level to verify that there is no deficiency Continue vitamin D supplementation for goal level of 50. Recheck level to verify that there is no deficiency 12/15/2024 Encounter for screening for malignant neoplasm of colon (ICD-10 - Z12.11) Up-to-date on colon cancer screening 12/15/2024 Encounter for screening for malignant neoplasm of prostate (ICD-10 - Z12.5) Can check PSA has prostate cancer screening realizing the limitation of this test as a screening test 12/15/2024 Encounter for screening for cardiovascular disorders (ICD-10 - Z13.6) Blood pressure is stable. Can check for comorbidity of hyperlipidemia and hyperglycemia to further assess risk. 12/15/2024 Encounter for immunization (ICD-10 - Z23) Vaccines updated 12/15/2024 Encounter for antibody response examination (ICD-10 - Z01.84) He would be considered immune to rubeola by virtue of his age 0312/15/2024 Encounter for screening for other viral diseases (ICD-10 - Z11.59) Can screen for hepatitis C as per general recommendation 12/15/2024 Other This note was created with voice dictation recognition software and may contain errors of grammar and syntax. Also labs were reviewed with patient. 04/18/2025 Other This note was created with voice dictation recognition software and may contain errors of grammar and syntax. Also labs were reviewed with patient. Plan Of Treatment Pending Test Test Name Order Date Echocardiogram 12/10/2020 Holter Test 12/07/2020 25OH VITAMIN D 04/30/2022 COMPLETE CBC WITH DIFF 04/30/2022 COMPLETE URINALYSIS 04/30/2022 COMPREHENSIVE METABOLIC PANEL 04/30/2022 COMPREHENSIVE METABOLIC PANEL 02/27/2023 HEMOGLOBIN A1C 04/30/2022 LIPID PANEL W REFLEX TO DLDL 04/30/2022 OCCULT BLOOD X 3 10/23/2017 URINARY MICROALBUMIN 04/30/2022 C.DIFFICILE TOXIN 09/07/2023 STOOL CULTURE 09/07/2023 OVA AND PARASITE EXAM 02/11/2021 OVA AND PARASITE EXAM 10/04/2020 PET Brain Metabolism 05/18/2023 Future Test Test Name Order Date COMPREHENSIVE METABOLIC PANEL 06/01/2023 Next Appt Details Provider Name:Manoloelida Juan , 08/14/2025 02:00:00 PM, [address] [place] [address], [phone], Provider Name:Binta Martinez , 12/21/2025 10:45:00 AM, [address] [place] [address], [phone], Insurance Providers Payer Name Payer Address Payer Phone Subscriber Number Group Number Insured Name Patient Relationship to Insured Coverage Start Date Coverage End Date MEDICARE [address] [place] [address] [id number] Fabio Lopez Self - patient is the insured [address] [place], [place] [id number] [phone] [id number] Fabio Lopez Self - patient is the insured Medical (General) History Medical History History ICD Code Allergic rhinitis Back pain Esophagitis Fragemented REM sleep Hip Dysplasia, RIGHT Rosacea Snoring Variocele Chronic viral hepatitis B without delta- agent B18.1 Insomnia, unspecified G47.00 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 Impaired fasting glucose R73.01 Vitamin D deficiency, unspecified E55.9 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 Other bursitis of hip, right hip M70.71 Typical atrial flutter (resolved 021) undefined Impaired fasting glucose (resolved 09/03) Other bursitis of hip, right hip (resolv ed 09/03/2021) Medial epicondylitis, right elbow (resol nayana 09/03/2021) Lateral epicondylitis, left elbow (resol nayana 09/03/2021) Typical atrial flutter (resolved 021) COVID19 MARCE-Virus Identified (resolved 0 02/12/2023) Age-related nuclear cataract, right eye (resolved 11/10/2023) undefined Surgical History Surgery Date(Month/Year) shoulder arthroscopy, bilateral Hip Osteotomy, RT Varicocele cataract removal RIGHT 04/2023 cataract removal LEFT 05/2023 right hand CTS 10/2023 Hospitalization History Reason Date(Month/Year)
== END 2025-08-10 10:01 | disposition home or self-care (01) ==
LOC: HO.MRI 10:00
PROVIDERS: PCP Internal Medicine; Visit Provider Psychiatry & Neurology Neurology
DX: G30.9 Alzheimer's disease, unspecified (principal); F02.80 Dementia in other diseases classified elsewhere, unspecified severity, without behavioral disturbance, psychotic disturbance, mood disturbance, and anxiety
CPT/HCPCS: 70551

== ENCOUNTER 2025-08-10 11:22 | Outpatient (AMB) | payer MEDICARE, OTHER, SELFPAY ==
--- NOTE | 2025-08-10 11:37 | MHC.OFFVIS ---
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 His situation slowly worsened and apparently in September of 2024 he had an amyloid PET scan done in [place]. She was here to find out if anything could be done about him. He was having problem with his memory and focusing but otherwise no significant behavioral problems. He is presenting with a recent Alzheimer's Disease diagnosis. Approximately a year ago, he underwent a positive PET scan showing cerebral amyloid accumulation indicative of Alzheimer's Disease. The patient reports his forgetfulness becoming more frequent but not disabling, thus classified as mild and consistent with earlier stages of the disease. Cerebellar atrophy was also noted on MRI, attributed to a likely genetic cause rather than the patient's minimal alcohol use. Cognitive evaluation showed a Mini-Mental State Examination score of 25, suggesting mild cognitive impairment. [facility] Medical History (Updated 08/10/25 @ 12:12 by Malena Morataya MD) Prediabetes Benign essential tremor SHAHBAZ (obstructive sleep apnea) CKD (chronic kidney disease) Alzheimer disease Surgical History (Updated 07/04/25 @ 09:30 by Rosa Leslie [facility]) History of carpal tunnel surgery H/O cataract removal with insertion of prosthetic lens History of hip surgery H/O arthroscopy of shoulder Family History (Updated 07/04/25 @ 09:32 by Rosa Leslie [facility]) Father No problems noted. Mother Hypertension Kidney failure Review of Systems Narrative - Neurological: Reports forgetfulness. - Psychiatric: Denies any mood disturbances. Physical Exam Neuro Other: Mental Status: Alert and oriented to person, place, and time. Normal attention. Normal spontaneous speech, fluency, and comprehension. Cranial Nerves: CN II: Visual muse full to confrontation, visual acuity intact. CN III, IV, : Pupils equal, round, reactive to light and accommodation. Extraocular movements are normal. CN V: Facial sensation is normal. CN VII: Facial movements symmetrical. CN VIII: Hearing intact to bedside conversation is normal. CN IX, X: Palate elevates symmetrically. CN XI: Shoulder shrug and head turn symmetrical. CN XII: Tongue midline without atrophy or fasciculations. Coordination: Rmlyfy-la-izhf and pmyq-to-fuib testing normal. No dysmetria. Gait and Station: No obvious gait abnormality. No ataxia or instability. Extrapyramidal: Full facial expressions and blinking. No rigidity. Movements are appropriate with no tremor or abnormality. Speech: Normal; no dysarthria or tremor. Results Reviewed Results Reviewed: Laboratory Tests 07/05/25 12:59 ESR 8 Vitamin B12 571 Folate 11.9 TSH 1.01 Lyme Screen IgG & IgM <0.90 Assessment & Plan Assessment & Plan (1) Alzheimer disease: Comment: MRI brain WO at [facility] in Aug 2025: Mild cerebellar and frontal cortical atrophy, mild MVD Amyloid PET in [place] in Sep 2024: + scan Labs in 2023: Ape E: E3/E3 Code(s): G30.9 - Alzheimer's disease, unspecified; F02.80 - Dementia in other diseases classified elsewhere, unspecified severity, without behavioral disturbance, psychotic disturbance, mood disturbance, and anxiety Category: Medical Plan Impression: Alzheimer disease with brain PET amyloid + in Sep 2024. Rec: I had detail conversation with the couple explaining the basis of this diagnosis and the possibility of its treatment in early stages, which she was in. I also discussed risks and benefit of medicines available to us. Risks of potential complications including stroke in about 3% of patients, which can also be disabling and can not be completely predicted. The want to take more time to make the decision. During our discussion, I explained to the patient and his family the diagnosis of Alzheimer's Disease, confirming it through the positive PET scan showing amyloid deposits. The current mild stage was discussed alongside the patient's ability to live independently. I introduced the possibility of treatment with amyloid-targeting medications, clarifying their purpose to slow progression by reducing amyloid load by approximately 35-40%. Potential risks, such as a 3% incidence of stroke with treatment, were explained. We emphasized the necessity of family consent due to decision-making implications of Alzheimer's. Insurance coverage criteria for early-stage treatment initiation were reviewed. We discussed that regular MRI imaging would be used to monitor any vascular events during treatment, and a follow-up PET scan after a year would guide continuation of therapy. No immediate further screenings are required for the cerebellar atrophy as it's attributed to a genetic basis and deemed asymptomatic. Coding Level of Care Code Est Pt Level 5 (65265) Diagnoses Alzheimer disease G30.9; F02.80
== END 2025-08-10 12:14 | disposition home or self-care (01) ==
LOC: HO.HSM 11:23
PROVIDERS: PCP Internal Medicine; Visit Provider Psychiatry & Neurology Neurology
DX: G30.9 Alzheimer's disease, unspecified (principal); F02.80 Dementia in other diseases classified elsewhere, unspecified severity, without behavioral disturbance, psychotic disturbance, mood disturbance, and anxiety
CPT/HCPCS: 99213